=== PATIENT | female | born 1940 | race Hispanic/Latino ===

== ENCOUNTER 2019-07-20 09:47 | Emergency (ER) | payer MEDICARE, OTHER ==
--- NOTE | 2019-07-20 10:41 | RAD ---
Chest AP view INDICATION: Chest pain COMPARISON: None FINDINGS: Lungs: The lungs are clear Cardiac silhouette: Mild cardiomegaly. Pulmonary vasculature: Normal Pleural spaces: No pleural effusion or pneumothorax is demonstrated. Upper abdomen: No abnormality seen. Osseous structures: No acute osseous abnormality. Additional findings: None. IMPRESSION: No acute cardiopulmonary abnormality.
[2019-07-20 10:42] LABS: #Eosinphils 0.1 thou/uL (0.0-0.7); #Lymphocytes 1.7 thou/uL (1.20-3.40); #Monocytes 0.4 thou/uL (0.11-0.59); #Neutrophils 3.1 thou/uL (1.40-6.50); %Basophils 0.7 % (0.0-1.0); %Eosinophils 2.2 % (0.0-10.0); %Lymphocytes 31.3 % (21.0-51.0); %Monocytes 7.2 % (0.0-10.0); %Neutrophils 58.5 % (42.0-75.0); Hemoglobin 13.1 g/dL (12.0-16.0); Mean Corpuscular HGB CONC 31.6 g/dL (32.0-36.0); Mean Corpuscular Hemoglobin 29.6 pg (27.0-31.0); Mean Corpuscular Volume 93.7 fL (78.0-98.0); Mean Platelet Volume 8.9 fL (7.4-10.4); Platelet Count 158 thou/uL (130-400); RBC Distribution Width 13.3 % (11.5-14.5); Red Blood Cell (RBC) Count 4.41 mill/uL (4.20-5.40); White Blood Cell (WBC) Count 5.3 thou/uL (4.8-10.8)
[2019-07-20 10:58] LABS: Acetaminophen Less than 6.0 mcg/mL (10.0-30.0); Alcohol Less than 10 mg/dL (Less than 10); Salicylate Less than 8.0 mg/dL (15.0-30.0)
[2019-07-20 10:59] LABS: ALT (SGPT) 14 U/L (8-55); AST (SGOT) 12 U/L (5-34); Albumin 3.8 g/dL (3.4-4.8); Alkaline Phosphatase 64 U/L (40-110); Anion Gap 11 mmol/L (10-20); BUN (Urea Nitrogen) 15 mg/dL (9.8-20.1); Bilirubin, Total 0.5 mg/dL (0.2-1.2); Calc. Creatinine Clearance 0 mL/min (70-130); Carbon Dioxide 23 mmol/L (23-31); Chloride 110 mmol/L (98-107); Estimated GFR-MDRD 73; Globulin 2.9 g/dL (2.4-3.5); Glucose 108 mg/dL (83-110); Potassium 3.9 mmol/L (3.5-5.1); Protein, Total 6.7 g/dL (6.0-8.3); Sodium 140 mmol/L (136-145)
[2019-07-20 11:46] LABS: Bilirubin Negative (Negative); Blood, Urine Trace (Negative); Clarity Clear (Clear); Glucose, Urine (Dipstick) Normal (Negative); Leukocyte 250 Leu/uL (Negative); Nitrite Negative (Negative); Protein, Urine (Dipstick) Negative (Neg-Trace); Squamous Epithelial None Seen HPF (0-3); Urobilinogen Normal mg/dL (Less than 2); WBC/HPF 0-3 HPF (0-3)
[2019-07-20 11:47] LABS: Bacteria/HPF 1+ HPF (None Seen)
[2019-07-20 11:49] LABS: Amphetamine Not Detected (NotDetected); Barbiturates Screen Not Detected (NotDetected); Benzodiazepine Screen Not Detected (NotDetected); Cocaine Metabolite Screen Not Detected (NotDetected); Medtox Control Line Valid? VALID (VALID); Medtox Reader # READER 1; Methadone Not Detected (NotDetected); Methamphetamine Not Detected (NotDetected); Opiate Screen Not Detected (NotDetected); Oxycodone Screen Not Detected (NotDetected); Phencyclidine (PCP) Not Detected (NotDetected); THC/Cannabinoid Screen Not Detected (NotDetected); Tricyclic Screen Not Detected (NotDetected)
[2019-07-20] MEDS ORDERED: Haloperidol 1 MG TAB ONE (12:06)
== END 2019-07-20 16:03 | disposition home or self-care (01) ==
LOC: ERS 09:47
DX: F20.9 Schizophrenia, unspecified (principal); E11.9 Type 2 diabetes mellitus without complications; I11.0 Hypertensive heart disease with heart failure; I50.9 Heart failure, unspecified; Z79.899 Other long term (current) drug therapy
CPT/HCPCS: 36415; 51701; 71045; 80053; 80306; 80307; 81003; 81015; 84443; 84484; 85025; 93005; 94760; A4353